=== PATIENT | female | born 1945 | race Two or more races ===

== ENCOUNTER → 2017-10-26 | Day surgery (SDC) | payer MEDICARE, MEDICAID ==
[2017-10-25 12:14] LABS: Basophils # (auto) 0.1 uL; Basophils % (auto) 1.1 % (0.0-2.0); Eosinophils # (auto) 0.1 uL; Eosinophils % (auto) 1.5 % (0.0-7.0); Hematocrit 32.5 % (36.0-46.0); Hemoglobin 10.5 g/dL (12.2-16.2); Lymphocytes # (auto) 1.6 uL; Lymphocytes % (auto) 19.1 % (10.0-50.0); Mean Corpuscular Hemoglobin 27.9 pg (28.0-32.0); Mean Corpuscular Hgb Conc. 32.5 g/dL (32.0-36.0); Mean Corpuscular Volume 85.9 fL (80.0-100.0); Monocytes # (auto) 0.7 uL; Monocytes % (auto) 8.4 % (0.0-12.0); Neutrophils # (auto) 5.8 uL; Neutrophils % (auto) 69.9 % (37.0-80.0); Platelet Count (auto) 345 10^3/uL (140-450); Red Blood Cells 3.78 10^6/uL (4.0-5.20); Red Cell Distribution Width 17.9 % (11.8-14.3); White Blood Cell 8.4 10^3/uL (4.4-10.8)
[2017-10-25 12:45] LABS: Albumin 3.2 g/dL (3.4-5.0); BUN/Creatinine Ratio 21.4; Bilirubin, Total 0.3 mg/dL (0.2-1.0); Calcium 9.2 mg/dL (8.5-10.1); Potassium 5.4 mmol/L (3.5-5.1); Total Protein 8.3 g/dL (6.4-8.2)
[2017-10-25 13:27] LABS: INR 0.89 (0.9-1.15); Partial Thromboplastin Time 23.8 sec (23.78-33.04); Prothrombin Time 9.6 sec (9.27-12.13)
[~2017-10-26] VITALS: Ht 160 cm; Wt 63.5 kg
[~2017-10-26] MED LIST: ALEN70TA55 PO; ATOR1TAB PO; BENZ100C97 PO; FOLI1TAB6 PO; GLIP-115 PO; HYDR-4683 PO; INSLANTI SC; INSUINJ18 SC; MEMA28CA OR; METO25TA5 PO; METO5TAB2 PO; OMEP20TA PO; ONDANSETRON HCL 4 MG/2 ML VIAL IV ONE; PROPOFOL 10 MG/ML 20 ML IV ONE; SERT-160 PO; ceFAZolin 1GM/100ML 50 ML IV ONE; ePHEDrine SULFATE 50 MG/ML AMP IV PRN; fentaNYL CITRATE 100 MCG/2 ML VL IV ONE; fentaNYL CITRATE 100 MCG/2 ML VL ONE; hydrALAZINE HCL 20 MG/ML VL IV PRN
[2017-10-26 15:15] VITALS: BP 152/76
== END | disposition home or self-care (01) ==
LOC: SUR 11:02
PROVIDERS: ATTEND Podiatrist Foot & Ankle Surgery
DX: E11.621 Type 2 diabetes mellitus with foot ulcer (principal); L97.429 Non-pressure chronic ulcer of left heel and midfoot with unspecified severity; F03.90 Unspecified dementia, unspecified severity, without behavioral disturbance, psychotic disturbance, mood disturbance, and anxiety; G90.1 Familial dysautonomia [Riley-Day]; I10 Essential (primary) hypertension; F32.9 Major depressive disorder, single episode, unspecified
CPT/HCPCS: 15004; 15275; 36415; 80053; 82962; 85025; 85610; 85730; 87070; 87075; 87205; C1887; C9354; J0690; J2704; J3010; L3260